=== PATIENT | male | born 1975 | race Caucasian/White ===

== ENCOUNTER 2017-02-10 19:17 | Emergency (ER) | payer OTHER ==
--- NOTE | ~2017-02-10 | US67 ---
[facility] A Service of [facility] RADIOLOGY TEXT RESULTS PATIENT: FRITZ WISE LOCATION: [facility] : 71 UNIT #: [id number] AGE: [address]: Al Mckenna DO SEX: M ORDER DR: [id number] [facility] [address] [place], [place] [address] [id number] E MR#: [id number] Acc #: [id number] NAME: FRITZ WISE : 1975 SEX: M STUDY DATE/TIME: 02/10/2017 21:46 UNIT: [facility] ROOM: STUDY DESCRIPTION: Gallbladder Attending Physician: Al Mckenna D.O. Ordering Physician: Al Mckenna D.O. Primary Care Physician: No Primary Care Physician MEDICAL IMAGING REPORT This report is preliminary unless electronic signature is present EXAM Gallbladder sonogram. CLINICAL HISTORY Pain x2 days, left upper quadrant pain x2 days. FINDINGS Real-time examination demonstrates the gallbladder to be free of stones or wall thickening. The liver appears normal. Right kidney unremarkable. Please note recent CT demonstrated a renal stone but clearly no hydronephrosis. No free fluid. Pancreas obscured due to overlying bowel gas. Pancreas was normal by recent CT. No intra or extrahepatic ductal dilatation is identified. Common bile duct measures 3.1 mm. IMPRESSION Normal gallbladder by ultrasound. Dictated by... Natasha Cote M.D. THIS IS AN ELECTRONICALLY VERIFIED REPORT Natasha Cote M.D. at 02/11/2017 6:34 PM RAGHU/janneth TD: 02/11/2017 10:05 JOB #: [id number] MEDICAL IMAGING REPORT COPY
--- NOTE | ~2017-02-10 | CT4 ---
[facility] A Service of [facility] RADIOLOGY TEXT RESULTS PATIENT: FRITZ WISE LOCATION: [facility] : 71 UNIT #: [id number] AGE: [address]: Al Mckenna DO SEX: M ORDER DR: [id number] [facility] [address] [place], [place] [address] [id number] E MR#: [id number] Acc #: [id number] NAME: FRITZ WISE : 1975 SEX: M STUDY DATE/TIME: 02/10/2017 19:36 UNIT: [facility] ROOM: STUDY DESCRIPTION: CT Abd and Pelv Wo Cont Attending Physician: Al Mckenna D.O. Ordering Physician: Al Mckenna D.O. Primary Care Physician: No Primary Care Physician MEDICAL IMAGING REPORT This report is preliminary unless electronic signature is present EXAM CT abdomen and pelvis without contrast HISTORY Left-sided abdominal pain onset today. TECHNIQUE Axial images were performed through the abdomen and pelvis without contrast. Multiplanar reconstructed images reviewed at a workstation. This CT exam was performed with one or more of the following radiation dose reduction techniques: automatic exposure control, adjustment of mA and/or kV according to patient size, and iterative reconstruction. FINDINGS ABDOMEN: Lung base is unremarkable. The liver, spleen, gallbladder appear normal. Pancreas and adrenal glands unremarkable. There is a nonobstructing right renal stone measuring about 5 mm. No hydronephrosis. Visualized GI tract to include the appendix unremarkable. The retroperitoneum appears normal. PELVIS: Bladder and prostate appear normal. Osseous structures remarkable for degenerative changes mid and lower thoracic spine and mild anterior disc bulging lumbar spine. IMPRESSION 1. No acute intraabdominal or intrapelvic pathology identified. Patient does demonstrate a 5 mm nonobstructing right renal stone. Dictated by.Eugenio. Natasha Cote M.D. THIS IS AN ELECTRONICALLY VERIFIED REPORT [facility] A Service of [facility] RADIOLOGY TEXT RESULTS PATIENT: FRITZ WISE LOCATION: [facility] : 71 UNIT #: [id number] AGE: [address]: Al Mckenna DO SEX: M ORDER DR: Natasha Cote M.D. at 02/11/2017 6:32 PM RAGHU/malena TD: 02/11/2017 09:37 JOB #: [id number] MEDICAL IMAGING REPORT COPY
[2017-02-10 17:27] LABS: BASOPHIL# 0.1 X10e3 (0-0.3); BASOPHIL% 0.6 % (0-2.5); EOSINOPHIL# 0.1 X10e3 (0-0.7); EOSINOPHIL% 1.6 % (0.0-7.0); HEMOGLOBIN 15.1 gm/dL (13.0-16.0); LYMPHOCYTE# 2.6 X10e3 (1.0-3.5); LYMPHOCYTE% 30.1 % (17.0-45.0); MEAN CELL VOLUME 84.8 FL (83-96); MEAN CORPUSCULAR HEMOGLOBIN 29.1 PG (28-34); MEAN CORPUSCULAR HGB CONC 34.3 g/dL (30-36); MEAN PLATELET VOLUME 7.8 FL (6.5-11.5); MONOCYTE# 0.4 X10e3 (0-1.0); NEUTROPHIL# 5.3 X10e3 (1.5-7.1); NEUTROPHIL% 62.7 % (40-75); PLATELET COUNT 262 X10e3 (140-420); RED BLOOD COUNT 5.19 X10e (3.90-5.60); RED CELL DISTRIBUTION WIDTH 12.6 % (11.0-15.5); WHITE BLOOD COUNT 8.5 X10e3 (4.0-10.5)
[2017-02-10 17:29] LABS: DIFF IND NO
[2017-02-10 18:01] LABS: ALBUMIN SERUM 4.5 g/dL (3.5-5.0); ALKALINE PHOSPHATASE 53 U/L (32-92); ALT (SGPT) 58 U/L (10-40); AST (SGOT) 34 U/L (10-42); BILIRUBIN, DIRECT 0.1 mg/dL (0.0-0.2); BILIRUBIN,INDIRECT 0.6 mg/dL (0.0-0.9); BILIRUBIN,TOTAL 0.7 mg/dL (0.2-2.0); BLOOD UREA NITROGEN 12 mg/dL (9-23); BUN/CREATININE RATIO 17.14; CALCIUM SERUM 9.4 mg/dL (8.4-10.2); CARBON DIOXIDE 25 mmol/L (22-31); CHLORIDE 101 mmol/L (100-111); CREATININE SERUM 0.7 mg/dL (0.6-1.4); GLOM FILT RATE Estimated ABOVE60 mL/min (>60); GLUCOSE FASTING 136 mg/dL (70-110); LIPASE 98 U/L (22-51); POTASSIUM 3.6 mmol/L (3.5-5.1); PROTEIN TOTAL SERUM 7.4 g/dL (6.0-8.3); SODIUM 137 mmol/L (135-145)
[~2017-02-10 19:17] MED LIST: NO MEDICATIONS
[2017-02-10 19:31] LABS: URINE SOURCE CLEAN CATCH
[2017-02-10 19:39] LABS: URINE APPEARANCE CLEAR; URINE BILIRUBIN NEG (NEG); URINE BLOOD NEG (NEG); URINE COLOR YELLOW; URINE GLUCOSE NEG (NEG); URINE KETONE NEG (NEG); URINE LEUKOCYTE ESTERASE NEG (NEG); URINE NITRATE NEG (NEG); URINE PH 5.5 (5-8); URINE PROTEIN NEG (NEG); URINE SPECIFIC GRAVITY 1.016 (1.003-1.035); URINE UROBILINOGEN 0.2 MG/DL (NEG)
[2017-02-10 19:51] LABS: CULTURE INDICATED? NO
[2017-02-17] MEDS ORDERED: PANTOPRAZOLE SO40 MG PO (07:43)
[2017-02-17] MEDS ORDERED: HYDROCODON-ACE1 EAC5 PO (11:34)
== END 2017-02-10 22:50 | disposition home or self-care (01) ==
LOC: CED 19:17
DX: R10.9 Unspecified abdominal pain (principal); I10 Essential (primary) hypertension
CPT/HCPCS: 36415; 71020; 74176; 76705; 80048; 80076; 81003; 83690; 84484; 85025; 85379; 99284

== ENCOUNTER → 2017-02-17 | Day surgery (SDC) | payer OTHER ==
[~2017-02-17] MED LIST changes: +HYDROCODON-ACE1 EAC5 PO; +PANTOPRAZOLE SO40 MG PO
--- NOTE | ~2017-02-17 | OR ---
Unit #: [id number] #: [id number] Patient: FRITZ WISE [id number] [address] [place], [place] [address] [id number] O MR#: [id number] NAME: FRITZ WISE ROOM: Date of Procedure: 02/17/2017 Admission Date: 02/17/2017 Surgeon: Leonidas Hernandez M.D. : 1975 Attending Physician: Leonidas Hernandez M.D. Primary Care Physician: [facility] OPERATIVE REPORT JOB NOTE: CC: [facility]. PRIMARY CARE PHYSICIAN [facility]. PREOPERATIVE DIAGNOSES The patient presented with history of left upper quadrant abdominal pain. This is radiated into the subcostal area and is made worse by meals. PROCEDURES PERFORMED Upper gastrointestinal endoscopy and biopsy. POSTOPERATIVE DIAGNOSES 1. The patient had moderately severe distal ulcerative esophagitis. 2. There was mild focal patchy erosive duodenitis. 3. Rest of the examination up to third part of the duodenum was normal. The biopsies obtained from the antrum for CLOtest. RECOMMENDATIONS 1. Follow up results for CLOtest. 2. The patient being started on pantoprazole 40 mg p.o. daily. 3. The patient will be followed up in the office in 3 months time. It is noteworthy that ultrasound and CAT scan of the abdomen are unremarkable except for incidental nonobstructing stone in the right kidney. SEDATION USED MAC. DESCRIPTION OF PROCEDURE Following detailed explanations of potential risks and complications of an upper endoscopy, namely perforation, bleeding, and complications related to sedation, the patient was brought to GI lab and laid in the left lateral decubitus position. Lubricated tip of the Olympus video upper endoscope was passed through bite block into the proximal esophagus under direct vision. The entire esophageal mucosa was examined and the patient was noted to have grade 2 or moderately severe distal ulcerative esophagitis. The scope was then advanced into the gastric cavity and the latter was insufflated. Mucosa of the fundus, body, and antrum was examined and appeared unremarkable. Pylorus was intubated with visualization of the duodenal bulb. The latter was noted to have mild focal patchy erosive duodenitis. The second and third part of duodenum were normal. Upon withdrawal and retroflexion, incisura, cardia, and Unit #: [id number] #: [id number] Patient: FRITZ WISE greater curve examined and biopsy obtained from the antrum for CLOtest. The scope was then withdrawn in the distal esophagus. The entire esophageal mucosa was examined all the way up to pharynx. No additional findings noted. The patient tolerated the procedure without any postprocedure complications. Dictated by... Rox Sanon/arturo TD: 02/17/2017 07:38 JOB #: [id number] OPERATIVE REPORT Page 1 of 1 X Leonidas Hernandez MD X PROCEDURE OPERATIVE NOTE
[2017-02-17 08:36] LABS: BASOPHIL# 0.1 X10e3 (0-0.3); BASOPHIL% 0.7 % (0-2.5); EOSINOPHIL# 0.1 X10e3 (0-0.7); EOSINOPHIL% 1.5 % (0.0-7.0); HEMATOCRIT 42.8 % (38.0-50.0); HEMOGLOBIN 14.5 gm/dL (13.0-16.0); LYMPHOCYTE# 2.1 X10e3 (1.0-3.5); LYMPHOCYTE% 25.6 % (17.0-45.0); MEAN CORPUSCULAR HEMOGLOBIN 29.1 PG (28-34); MEAN CORPUSCULAR HGB CONC 33.9 g/dL (30-36); MEAN PLATELET VOLUME 7.6 FL (6.5-11.5); MONOCYTE# 0.6 X10e3 (0-1.0); MONOCYTE% 7.3 % (3.0-12.0); NEUTROPHIL# 5.3 X10e3 (1.5-7.1); NEUTROPHIL% 64.9 % (40-75); PLATELET COUNT 240 X10e3 (140-420); RED BLOOD COUNT 4.97 X10e (3.90-5.60); RED CELL DISTRIBUTION WIDTH 12.7 % (11.0-15.5); WHITE BLOOD COUNT 8.2 X10e3 (4.0-10.5)
[2017-02-17 08:38] LABS: DIFF IND NO
[2017-02-17 09:12] LABS: ALKALINE PHOSPHATASE 48 U/L (32-92); ALT (SGPT) 42 U/L (10-40); AMYLASE 76 U/L (0-46); AST (SGOT) 25 U/L (10-42); BILIRUBIN,TOTAL 0.5 mg/dL (0.2-2.0); BLOOD UREA NITROGEN 15 mg/dL (9-23); BUN/CREATININE RATIO 21.42; CALCIUM SERUM 9.2 mg/dL (8.4-10.2); CARBON DIOXIDE 25 mmol/L (22-31); CHLORIDE 108 mmol/L (100-111); CREATININE SERUM 0.7 mg/dL (0.6-1.4); GLOM FILT RATE Estimated ABOVE60 mL/min (>60); GLUCOSE FASTING 100 mg/dL (70-110); POTASSIUM 3.9 mmol/L (3.5-5.1); PROTEIN TOTAL SERUM 6.9 g/dL (6.0-8.3); SODIUM 139 mmol/L (135-145)
== END | disposition home or self-care (01) ==
LOC: COPS 06:08
PROVIDERS: Internal Medicine Gastroenterology
PROC: 0DB78ZX Excision of Stomach, Pylorus, Via Natural or Artificial Opening Endoscopic, Diagnostic (ICD-10-PCS; principal; 2017-02-17 07:00)
DX: K22.10 Ulcer of esophagus without bleeding (principal); K29.80 Duodenitis without bleeding; N20.0 Calculus of kidney; Z72.89 Other problems related to lifestyle; Z79.891 Long term (current) use of opiate analgesic; Z98.890 Other specified postprocedural states
CPT/HCPCS: 80053; 82150; 83690; 85025; 87077; J2250